=== PATIENT | male | born 1950 | race African-American/Black ===

== ENCOUNTER 2024-03-27 02:55 | Emergency (ER) | payer OTHER ==
[~2024-03-27] VITALS: Ht 182.9 cm; Wt 78.0 kg
[2024-03-27] MEDS: VANCOMYCIN 1G PREMIX 200 ML IV ONE (03:15)
[2024-03-27] MEDS: PIPERACILLIN/TAZO 3.375G/50ML 50 ML IV ONE (03:25)
[2024-03-27] MEDS: SODIUM CHLORIDE 0.9% 1,000 ML IV ONE ×2 (03:25→04:30)
[2024-03-27 03:35] LABS: HEMATOCRIT. 37.6 % (42.0-52.0); HEMOGLOBIN. 11.8 g/dL (14.0-18.0); MEAN CORPUSCULAR HEMOGLOBIN 25.1 pg (28.0-32.0); MEAN CORPUSCULAR HGB CONC 31.5 g/dL (31.0-37.0); MEAN CORPUSCULAR VOLUME 79.9 fL (80.0-94.0); PLATELET 190 x1000/uL (130-400); RED BLOOD CELL COUNT 4.71 mill/uL (4.7-6.1); RED CELL DISTRIBUTION WIDTH 14.5 % (11.6-14.6); WHITE BLOOD COUNT 7.9 x1000/uL (4.5-11.0)
[2024-03-27 03:36] LABS: DIFFERENTIAL COMMENT 1
[2024-03-27 03:43] LABS: CHLORIDE 106 mEq/L (98-107); SODIUM 139 mEq/L (136-145)
[2024-03-27 03:44] LABS: CALCIUM 9.2 mg/dL (8.7-10.4); CARBON DIOXIDE 23 mEq/L (21-32)
[2024-03-27 03:46] LABS: INR 1.1; PROTHROMBIN TIME 12.5 sec (9.6-11.0)
[2024-03-27 03:49] LABS: CREATININE 1.8 mg/dL (0.6-1.3); GLUCOSE 84 mg/dL (70-105); UREA NITROGEN BLOOD 21 mg/dL (9-23)
[2024-03-27 03:50] LABS: LACTIC ACID 2.2 mmol/L (0.4-2.0)
[2024-03-27 03:51] LABS: ALANINE AMINOTRANSFERASE < 7 IU/L (10-49); ALBUMIN 4.3 g/dL (3.2-4.8); ASPARTATE AMINOTRANSFERASE 24 IU/L (<34); BILIRUBIN DIRECT 0.5 mg/dL (<=3.0)
[2024-03-27 03:52] LABS: BILIRUBIN TOTAL 1.7 mg/dL (0.1-1.0); PROTEIN TOTAL 7.1 g/dL (6.0-8.3)
[2024-03-27] MEDS ORDERED: MIDAZOLAM HCL 2 MG/2 ML VIAL IV ONE (04:30)
[2024-03-27 04:44] LABS: PLATELET ESTIMATE NORMAL
[2024-03-27 05:01] LABS: TROPONIN I HIGH SENSITIVITY 69 ng/L (3.0-53)
[2024-03-27] MEDS ORDERED: ONDANSETRON HCL 4MG/2ML INJ IV PRN (05:15)
[2024-03-27] MEDS ORDERED: MAGNESIUM/ALUMINUM HYDROXIDE/SIMETHICONE 30ML UDC PO PRN (05:15)
[2024-03-27] MEDS ORDERED: CLONIDINE 0.1MG TABLET PO PRN (05:15)
[2024-03-27] MEDS ORDERED: DOCUSATE SODIUM 100MG CAPSULE PO PRN (05:15)
[2024-03-27] MEDS ORDERED: GUAIFENESIN 200MG/10ML SUGAR FREE UDC PO PRN (05:15)
[2024-03-27] MEDS ORDERED: IPRATROPIUM/ALBUTEROL 0.5-3(2.5)MG/3ML NEB HHN PRN (05:15)
[2024-03-27] MEDS ORDERED: ACETAMINOPHEN 325MG TABLET PO PRN ×2 (05:15)
[2024-03-27] MEDS ORDERED: VANCOMYCIN 1G PREMIX 200 ML IV SCH ×2 (05:15→06:00)
[2024-03-27] MEDS ORDERED: ACETAMINOPHEN 650MG SUPP PR PRN (05:30)
[2024-03-27 05:56] LABS: CREATINE KINASE MB FRACTION < 0.5 ng/mL (0.5-3.6)
[2024-03-27 05:57] LABS: CREATINE KINASE 87 IU/L (46-171)
[2024-03-27] MEDS ORDERED: IPRATROPIUM/ALBUTEROL 0.5-3(2.5)MG/3ML NEB HHN SCH (06:00)
[2024-03-27 06:10] LABS: TROPONIN I HIGH SENSITIVITY 73 ng/L (3.0-53)
[2024-03-27 06:15] VITALS: O2SAT 98
[2024-03-27] MEDS: MIDAZOLAM HCL 2 MG/2 ML VIAL IV NR (06:15)
[2024-03-27 06:26] LABS: LACTATE DEHYDROGENASE 210 IU/L (120-246)
[2024-03-27] MEDS: LOPERAMIDE HCL 2MG CAPSULE PO NR (08:44)
[2024-03-27] MEDS: ENOXAPARIN 40MG/0.4ML SYR SUBCUT SCH (09:08)
[2024-03-27] MEDS: FAMOTIDINE 20MG TABLET PO SCH (11:25)
[2024-03-27] MEDS: DEXT 5%/LACTATED RINGERS 1,000 ML IV SCH (11:26)
[2024-03-27] MEDS: PIPERACILLIN/TAZO 3.375G/50ML 50 ML IV SCH (14:00)
[2024-03-27 17:33] LABS: AMMONIA < 17 uMol/L (<32); CREATINE KINASE MB FRACTION 1.7 ng/mL (0.5-3.6)
[2024-03-27] MEDS: AZITHROMYCIN 500 MG TABLET PO SCH (20:55)
[2024-03-27 23:42] VITALS: BP 103/51; PULSE 65; RESP 18; TEMP 98.2
[2024-03-28] MEDS ORDERED: VANCOMYCIN 1G PREMIX 200 ML IV SCH (07:00)
== END 2024-03-28 00:40 | disposition short-term general hospital (02) ==
LOC: ER 02:55 → 5WST 04:21 → UNDOADMIN 04:21 → EDBEDREQ 05:13 → EDBEDREQTM 05:13 → EDBEDREQSVC 09:26 → 5WST 21:47 → UNDODISIN 03-28 00:39 → 5WST 03-28 00:40
DX: A41.89 Other specified sepsis (principal); G93.41 Metabolic encephalopathy; U07.1 COVID-19; J12.82 Pneumonia due to coronavirus disease 2019; J69.0 Pneumonitis due to inhalation of food and vomit; E87.21 Acute metabolic acidosis; N30.00 Acute cystitis without hematuria; R17 Unspecified jaundice; R65.20 Severe sepsis without septic shock; R19.7 Diarrhea, unspecified; D50.9 Iron deficiency anemia, unspecified; I10 Essential (primary) hypertension; Z20.822 Contact with and (suspected) exposure to COVID-19
CPT/HCPCS: 99285; 70450; 96365; 96366; 71045; 87426; 80076; 80048; 82140; 82550; 82553; 83605; 83615; 83690; 85025; 85044; 85379; 85610; 87040; 84484; 84145; 74176; 93005; 96368; 96372; 36415; J1650; J2543; J3370; J7030; J2250; J7121